=== PATIENT | female | born 1935 | race Caucasian/White ===

== ENCOUNTER → 2018-06-19 12:22 | Outpatient (CLI) | payer MEDICARE, OTHER, SELFPAY ==
--- NOTE | 2018-06-19 | DI.MRI.S_ITS ---
PROCEDURE: MR KNEE LT WO CON INDICATIONS: CHRONIC PAIN OF LEFT KNEE TECHNIQUE: Noncontrast sagittal PD fast spin echo and T2 fast spin echo with fat saturation, sagittal 3-D FLASH with fat saturation; coronal T1 spin echo and PD fast spin echo with fat saturation, and axial PD fast spin echo with fat saturation through the knee. COMPARISON: [facility], MR, KNEE/ANKLE W/O CONTRAST(LT), 12/18/2007, 10:59. [facility], CR, XR KNEE ARTHRITIC SERIES BI, 06/10/2018, 15:42. FINDINGS: Image quality: Excellent. Menisci: There is medial extrusion of the medial meniscus, which demonstrates amorphous high signal intensity within the anterior horn, body, and posterior horn, which demonstrates superior and inferior articular surface extension, indicating multifocal degenerative tearing. The lateral meniscus demonstrates linear oblique high T2 signal intensity traversing the body and posterior horn, demonstrating inferior articular surface extension, indicating oblique tearing. Cruciate ligaments: The posterior cruciate ligament is intact. There is severe thinning of the anterior cruciate ligament at the tibial insertion site. Medial structures: The medial collateral ligament appears intact. Visualized portions of the pes anserinus tendons appear normal. No abnormal bursal fluid. Lateral structures: The lateral collateral ligament demonstrates a small focus of fluid signal intensity close to the femoral insertion site. The long and short heads of the biceps femoris tendon appear intact. The popliteus tendon appears normal. Iliotibial band appears normal. Anterior structures: The quadriceps and patellar tendons appear intact. There is mild lateral patellar subluxation. No femoral trochlear dysplasia or ventral trochlear prominence. No edema in the infrapatellar fat pad. Bones and cartilage: No bone marrow contusions or fractures. There is severe tricompartmental periarticular osteophyte formation. There is severe diffuse articular cartilage loss overlying the weightbearing aspects of the medial femoral condyle and medial tibial plateau. Mild diffuse articular cartilage loss overlies the weightbearing aspects of the lateral femoral condyle and lateral tibial plateau. Moderate articular cartilage loss overlies the patellar apex and lateral patellar facet inferiorly Joint space: There is a small knee joint effusion and a small Scott's cyst. Normal appearing synovial plicae are incidentally noted. IMPRESSION: 1. 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 2. Progressive medial and lateral meniscal tearing. 3. Partial-thickness lateral collateral ligament tear. 4. Knee joint effusion and Scott's cyst. 5. Partial-thickness anterior cruciate ligament tear. Dictated by: Kwasi Montalvo M.D. on 06/19/2018 at 16:10 Approved by: Kwasi Montalvo M.D. on 06/19/2018 at 16:14
== END ==
PROVIDERS: PCP Nurse Practitioner; Visit Provider Orthopaedic Surgery
DX: S83.422A Sprain of lateral collateral ligament of left knee, initial encounter (principal); S83.512A Sprain of anterior cruciate ligament of left knee, initial encounter; M17.12 Unilateral primary osteoarthritis, left knee; M25.562 Pain in left knee; M23.322 Other meniscus derangements, posterior horn of medial meniscus, left knee; M23.212 Derangement of anterior horn of medial meniscus due to old tear or injury, left knee; M23.352 Other meniscus derangements, posterior horn of lateral meniscus, left knee; M71.22 Synovial cyst of popliteal space [Baker], left knee; M25.462 Effusion, left knee; G89.29 Other chronic pain
CPT/HCPCS: 73721

== ENCOUNTER 2018-08-30 09:44 | Day surgery (SDC) | payer MEDICARE, OTHER, SELFPAY ==
[2018-08-28 08:55] VITALS: BMI 33.1
[2018-08-30] VITALS (20 sets, daily range): BP systolic 115–156; BP diastolic 59–79; PULSE 63–96; RESP 8–18; TEMP 35.7–37; O2SAT 91–99; BMI 33.1
--- NOTE | 2018-08-30 06:00 | DI.RAD.S_ITS ---
PROCEDURE: XR KNEE LT 1TO2V INDICATIONS: prosthesis placement TECHNIQUE: 2 view(s) of the knee acquired. COMPARISON: [facility], XR KNEE ARTHRITIC SERIES BI, 06/10/2018, 15:42. FINDINGS: Bones: Patient is status post knee joint arthroplasty. Hardware components are in expected positions. Visualized bony structures are intact. Soft tissues: Overlying postoperative changes are noted. IMPRESSION: Expected postsurgical change for left knee arthroplasty. Dictated by: Emilie Miranda MD, PhD on 08/30/2018 at 14:55 Approved by: Emilie Miranda MD, PhD on 08/30/2018 at 14:56
[2018-08-30] MEDS: LACTATED RINGERS 1,000 ML 42 ML IV ×2 (11:02→13:52)
[2018-08-30] MEDS: VANCOMYCIN 1,000 MG/200 ML FROZ.PIGGY 200 MG IV (11:03)
[2018-08-30] MEDS: ACETAMINOPHEN 325 MG TABLET 975 MG PO ×3 (11:06→20:52)
[2018-08-30] MEDS: PREGABALIN 75 MG CAPSULE PO (11:06)
[2018-08-30] MEDS: CELECOXIB 200 MG CAPSULE PO (11:06)
[2018-08-30] MEDS: CEFAZOLIN 2 GM/100 ML FROZ.PIGGY IV ×2 (11:54→19:35)
--- NOTE | 2018-08-30 12:41 | SUR.OPER ---
Supine on padded OR bed. Pillow under head, arms secured on padded armboards <90 degree abduction. Safety belt across torso. Non-operative leg secured with tape over blanket over lower leg. Operative leg secured in DeMayo/Frederick positioner. Foam padded brace at thigh of operative leg.
[2018-08-30] MEDS: BUPIVACAINE 0.25% W/ EPI VIAL 50 ML INJ (12:50)
[2018-08-30] MEDS: BUPIVACAINE LIPOSOME 266 MG/20 ML VIAL INJ (12:50)
[2018-08-30] MEDS: fentaNYL 100 MCG/2 ML INJ 50 MCG IV ×2 (15:01→15:16)
--- NOTE | 2018-08-30 15:03 | PM.OP.1 ---
Operative Date/Time/Diagnoses Date of procedure: 08/30/18 Time of procedure: 15:03 Pre-op diagnosis: left knee OA Post-op diagnosis: same Procedure & Clinicians Procedure: left total knee arthroplasty Same procedure as scheduled: Yes Indications: The patient has had progressively worsening left knee pain with radiographic changes consistent with arthritis. Non-operative management has failed and the patient has requested total knee replacement. The risks, benefits and alternatives to surgery were discussed with the patient prior to proceeding. Risks discussed included, but were not limited to, failure to relieve pain, stiffness, infection, nerve damage, deep venous thrombosis, pulmonary embolism, stroke, coma, heart attack, permanent paralysis and , as well as the potential need for eventual revision of the prosthetic. Surgeon: Kaye White Shell Press Operator: Sheila Hill Anesthesia Type: General and Spinal Operative Notes Findings: Severe left knee osteoarthritis, good stability, full range of motion Closure Type: primary Specimen(s): none sent Implants & Drains: white and nephalbin Maki BCS2 femur 4, tibia 3, +9, 32 x 7.5 Applied: drain(s) Estimated Blood Loss (mL): 250 Blood products transfused: none Tourniquet time (min): 75 Procedure in detail: The patient was seen in the pre-operative area, where the patient identified the left knee as the operative site and this was marked with my initials. The patient received pre-operative antibiotics, and was taken to the operating room and placed on the operative table in the supine position. After satisfactory anesthesia, a second time worker out was performed. The left leg was encircled with a tourniquet about the proximal thigh, and the leg was prepared from the toes to the tourniquet with ChloroPrep in the usual fashion and draped through sterile drapes. The leg was elevated and exsanguinated with Eschmark bandage and the tourniquet inflated to [250] mmHg pressure. The knee was approached through an approximately 18 cm incision centered over the patella and carried into the knee through a medial parapatellar arthrotomy. A portion of the medial and lateral meniscus was resected. Soft tissue was carefully mobilized around the patella the patella was measured with a caliper. Bone was resected from the patella and the patellar height was reconstituted with up an appropriate sized patellar component. A cover was then placed on the patella. A small amount of additional medial and lateral meniscus was resected. The visionare guide fit adequately to the distal femur. It looked like an appropriate distal femoral cut and the cut was made without difficulty. The rotation was assessed and the appropriate size femoral guide was placed on the distal femur and finishing cuts were made. There was no evidence of notching. The anterior, posterior and chamfer cuts were then made. The posterior osteophytes and soft tissues were then removed. The posterior capsule was injected with part of a mixture of 60 ml 0.25% Marcaine mixed with 20 ml Exparel for post operative pain control. The remainder of this mixture was injected into the capsule and subcutaneous tissues during cement curing. The tibia was prepared and the visionaire guide fit well to the distal tibia. The rotation was assessed. The patient was placed in extension residual medial and lateral meniscus as well as any residual bone was carefully resected. [No] additional tibia was resected. Hemostasis was achieved especially posteriorly. Additional local was injected into the posterior capsule. The extension gap was assessed and additional releases for gap balancing were performed as necessary. It was checked with the gap mushroom cutter. The femoral component was trial was placed and the notch was finished. Trial tibial and femoral components were then placed and the knee placed through a range of motion. Range of motion was [0-130], with good stability throughout the range. The trials were then removed, and the tibia was finished. The bone was prepared with pulsatile lavage, and dried with a sponge. Cement was applied and the final prosthetics placed. Excess cement was removed during and after cement curing. A brief Betadine soak was performed. After confirming there was no extruded cement posteriorly, the final tibial insert was placed. The knee was copiously irrigated and the tourniquet deflated. Hemostasis was obtained with the [Bovie]. A drain was placed and brought out superolaterally. The capsule was closed with interrupted polyethylene suture. The subcutaneous layer was closed with barbed sutures, and the skin with a running 3-0 V-Lock suture and Surgical glue. An Aquacel Ag dressing was applied and the patient was taken to recovery having tolerated the procedure well. Complications: none Condition: stable Disposition: Acute Care Plan for aftercare: The patient will be maintained on a standard total knee replacement protocol with weight bearing as tolerated. The patient will receive aspirin and sequential compression devices for DVT prophylaxis. The patient will be discharged home when safe for the home environment.
--- NOTE | 2018-08-30 15:21 | SUR.PHASEI ---
About ready to transfer to Acute Care and noted new onset of pain. With two doses of Fentanyl need to use O2 via NC so transfer delayed. Allowing time to assess O2 needs. No further med will be given in PACU as VS show onset with decreasing BP, and increased somnolent state seen with mild resp compromise.
--- NOTE | 2018-08-30 15:37 | SUR.PHASEI ---
RA trial prior to transfer with <92% sats realized. Will transfer to AC on O2. Am waiting now on RN finish shift report and receive PACU report.
[2018-08-30] MEDS: OXYCODONE IR 5 MG TABLET PO (16:20)
[2018-08-30] MEDS: LACTATED RINGERS 1,000 ML 125 ML IV (19:36)
[2018-08-30] MEDS: ASPIRIN EC 81 MG TABLET PO (20:54)
[2018-08-30] MEDS: DOCUSATE 100 MG CAPSULE PO (20:54)
[2018-08-31] VITALS: O2SAT 95
[2018-08-31] MEDS: LACTATED RINGERS 1,000 ML 125 ML IV (00:34)
[2018-08-31] MEDS: OXYCODONE IR 5 MG TABLET PO ×3 (00:48→14:52)
[2018-08-31 00:56] VITALS: BP 124/72; PULSE 60; RESP 16; TEMP 36.4; O2SAT 95
[2018-08-31] MEDS: CEFAZOLIN 2 GM/100 ML FROZ.PIGGY IV (03:33)
[2018-08-31 05:15] VITALS: BP 138/64; PULSE 57; RESP 16; TEMP 36.3; O2SAT 96
[2018-08-31 05:35] LABS: Hematocrit 31.2 % (36-46); Hemoglobin 10.4 g/dL (12.0-16.0)
[2018-08-31 08:00] VITALS: BP 133/73; PULSE 75; RESP 16; TEMP 36.5; O2SAT 97
--- NOTE | 2018-08-31 09:30 | PT.IIE ---
Current Diagnoses Unilateral primary osteoarthritis, left knee (08/30/18) Surgery Performed Operation Date: 08/30/18 12:00 Actual Procedures p Total Knee Arthroplasty(Left) - Kaye Quijano MD Surgical History (Last Updated 08/28/18 @ 09:14 by Stella Freed, RN) History of bilateral hip arthroplasty (Acute) History of colon resection (Acute ~2017) Hx of bilateral oophorectomy (Acute) Hx of cholecystectomy (Acute) Medical History (Last Updated 08/28/18 @ 09:14 by Stella Freed RN) Bilateral breast cancer (Acute) Easy bruisability (Acute) Edema (Acute) HTN (hypertension) (Acute) Hearing impaired (Acute) Skin cancer (Acute) Physical Therapy Inpatient Evaluation/Re-Eval M1 PT/OT-IP Prior Functional Status Start: 08/31/18 09:29 Freq: NEEDED Status: Active Protocol: Document 08/31/18 09:30 [facility] (Rec: 08/31/18 09:41 [facility] [id number]) Medical Review Prior Functional Status Medical History Reviewed Yes Mobility and Gait indep. gait without device until ~2 wks ago, she started using a SPC for gait d/t L knee pain Activities of Daily Living and IADL's indep. ADLs Social History Household Members spouse Living Arrangements Apartment/Condo Number of Floors (Floors) One Floor Number of Stairs To Enter/Railing? 8 SE with wide steps that will fit a FWW onto each step; 1 step into BR and 1 step up to toilet Home Environment Standard Height Toilet Tub/Shower Home Equipment Front Wheel Walker Straight Cane Bedside Commode Tub Transfer Bench Additional Social History Comment just had cataract re- do surgery, unable to drive but can assist upon d/c. Step son and daughter live in same home, above the lower level the pt lives in with her spouse. M2 PT-IP Current Condition Start: 08/31/18 09:29 Freq: NEEDED Status: Active Protocol: Document 08/31/18 09:30 [facility] (Rec: 08/31/18 09:41 [facility] [id number]) Physical Therapy Current Condition Current Condition Evaluation Date 08/31/18 Treatment Diagnosis L TKA 08/30/18, impaired gait and activity tolerance Weight Bearing Status Weight Bearing Status Weight Bear as Tolerated M3 PT-IP Subjective Start: 08/31/18 09:29 Freq: NEEDED Status: Active Protocol: Document 08/31/18 09:30 [facility] (Rec: 08/31/18 09:41 [facility] [id number]) Subjective Physical Therapy Visit Type Type Initial Evaluation Visit Start Time 08:56 Visit Stop Time 09:30 Total Visit Minutes 34 Number of MANGLE CATCHER Visits 0 Physical Therapy Visit Comments Patient Comments pt states she is doing okay Patient Goals to go home Therapy Pain Assessment Pain When Pain Assessed At Rest Pain Present Pain Present Pain Reported Location Left Knee Intensity 4 Scale Used Numeric (1 - 10) M4 PT-IP Mobility and Gait Start: 08/31/18 09:29 Freq: NEEDED Status: Active Protocol: Document 08/31/18 09:30 [facility] (Rec: 08/31/18 09:41 [facility] [id number]) PT-Bed Mobility Assessment Supine to Sit Supine to Sit Standby Assistance Sit to Supine Sit to Supine Standby Assistance Scooting Scooting to Edge of Bed Independent PT-Transfer Assessment Sit to and From Stand Sit to and from Stand Standby Assistance Use of Upper Extremities Equipment Transfer Assistive Device Gait Belt Front Wheeled Walker Transfers Transfer Destination Bed Chair Transfer Technique Stand Step Pivot Transfer Ability Level of Assist Standby Assistance Gait Assessment Gait Gait Assistance Required: Standby Assistance Distance (Feet) 70 Assistive Devices Assistive Device Gait Belt Front Wheeled Walker Gait Deviations General Gait Pattern Antalgic Decreased Stride Length Step-to Gait Factors Limiting Gait Function Factors Limiting Gait Function Decreased Activity Tolerance Decreased Strength Limited Range of Motion Pain Comments Gait Comments decreased L knee flexion with gait, foot flat on IC Stair Climbing Assessment Comments Stair Climbing Comments to be assessed PT-Balance Assessment Sitting Balance and Reactions Static Sitting Balance Ability Good Dynamic Sitting Balance Ability Good Standing Balance and Reactions Static Standing Balance Ability Good Dynamic Standing Balance Ability Fair Device Used FWW M5 PT-IP Objective Assessments Start: 08/31/18 09:29 Freq: NEEDED Status: Active Protocol: Document 08/31/18 09:30 [facility] (Rec: 08/31/18 09:41 [facility] [id number]) Orientation Orientation/Cognition Level of Alertness Alert Orientation Name Age Birthday Month Date Year Day of Week Place Situation Gross Range of Motion Lower Extremity ROM Assessment Left Impaired Impairments L knee AROM 2-82 degrees Strength Lower Extremity Strength Assessment Left Impaired Comments Strength Comments no formal MMT due to surgery yesterday. UE assistance with SLR to get in/out of bed on the LLE; able to perform L knee extension vs gravity in sitting (at least 3/5) Coordination Assessment Gross Coordination Gross Coordination WNL Sensation Assessment Sensation Gross Sensation WNL M6 PT-IP Treatment Start: 08/31/18 09:29 Freq: NEEDED Status: Active Protocol: Document 08/31/18 09:30 [facility] (Rec: 08/31/18 09:41 [facility] [id number]) Physical Therapy Treatment Exercises Exercises Ankle Pumps Quad Sets Seated Knee Flexion/Extension Knee ROM Measurement L knee AROM 2-82 degrees Education Education Provided Post-Op Packet Safety M7 PT-IP Assessment and Plan Start: 08/31/18 09:29 Freq: NEEDED Status: Active Protocol: Document 08/31/18 09:30 [facility] (Rec: 08/31/18 09:41 [facility] [id number]) PT Summary Assessment and Plan Potential Rehabilitation Potential Excellent Status of Condition at Evaluation Stable Summary Impairments Pain ROM Strength Gait Activity Tolerance Assessment Summary POD #1 L TKA. Pt able to ambulate 70 ft with SBA and the use of a FWW with a step- to gait pattern. Pt has 8 steps to enter/exit her home, and will need to perform these prior to d/c. At this time, expect pt to be able to d/c home when medically stable. and family to support pt upon d/c. She has OP PT set up for next week. Pain increased to 6/10 after ambulation, applied cold pack to L knee. PA-C in to see pt after session. Goals Bed Mobility Goal Independent Transfer Goal Independent Gait Goal Standby Assistance Front Wheel Walker Gait Distance 150 Other Goals up/down 8 steps with FWW and CGA Days to Meet Goals 3 Frequency of Treatment Frequency Of Treatment Twice a Day Treatment Plan Physical Therapy Treatment Plan Bed Mobility Training Transfer Training Gait Training Therapeutic Exercise Balance Retraining Discharge Planning Hot or Cold Pack Neuromuscular Re-ed Other Recommendations and Next Treatment stair training (8 SE but can Focus use FWW up/down steps), progress gait and ROM Recommendations To Nursing Amount of Assist Needed 1 Person Assist Discharge Recommendations PT Discharge Recommendations Home with Assistance Outpatient PT
[2018-08-31 10:05] VITALS: O2SAT 94
[2018-08-31] MEDS: ASPIRIN EC 81 MG TABLET PO (10:24)
[2018-08-31] MEDS: DOCUSATE 100 MG CAPSULE PO (10:24)
[2018-08-31] MEDS: ACETAMINOPHEN 325 MG TABLET 975 MG PO (10:25)
[2018-08-31] MEDS: SODIUM CHLORIDE 0.9% FLUSH 10 ML IV (10:28)
[2018-08-31] MEDS: LOSARTAN 50 MG TABLET 100 MG PO (10:28)
[2018-08-31] MEDS: hydroCHLOROthiazide 25 MG TABLET PO (10:28)
--- NOTE | 2018-08-31 11:04 | PM.PNPO.1 ---
Subjective Date Patient Seen: 08/31/18 Time Patient Seen: 11:05 Interval history: Hospital day 2, postop day 1 following left total knee arthroplasty by Dr. Quijano. Patient states she is doing well today. Did ambulate with physical therapy in the hallway without difficulty. Anticipating going home today. Pain controlled well with oxycodone. She has this with path patient and has postop pain medications at home. Exam Vital Signs (past 8 hours): - 08/31/18 05:15 08/31/18 08:00 08/31/18 10:05 Temperature 97.4 F L 97.7 F Pulse Rate 57 L 75 Respiratory Rate 16 16 Blood Pressure 138/64 133/73 Pulse Oximetry 96 97 94 Fraction of Inspired Oxygen 21 Oxygen Delivery Method Room Air Oxygen Flow Rate 0 Objective Labs Result Diagrams: 08/31/18 05:00 Labs: Laboratory Results - last 24 hr 08/31/18 05:00 Hgb 10.4 L Hct 31.2 L Assessment & Plan Post-op Postoperative Procedures Operation Date: 08/30/18 12:00 Actual Procedures Side Surgeon p Total Knee Arthroplasty Left Kaye Quijano MD
--- NOTE | 2018-08-31 11:11 | PM.DS.1 ---
History of Present Illness Date Patient Seen: 08/31/18 Time Patient Seen: 11:11 Chief complaint: 42334 LEFT TOTAL KNEE ARTHROPLASTY Narrative: Hospital day 2, postop day 1 following left total knee arthroplasty by Dr. Quijano. Patient states he is doing well. Pain control with oxycodone. She has progressed well with physical therapy with ambulation. She would like to go home today. Discharge Providers Date of admission: 08/30/18 09:44 Primary care physician: GISELLE Luna Consults: 08/30/18 06:00 Consult to Anesthesiology Routine Comment: Consulting Provider: Anesthesiologist Reason for consultation: Regional block for post operative pain control 08/30/18 16:02 Consult to Discharge Planning Routine Comment: Consult to Physical Therapy Evaluate & Treat Comment: Physician Instructions: postop TKA protocol Consult to Respiratory Therapy Evaluate & Treat Comment: Physician Instructions: Evaluate and treat Discharge provider: Ji Meza PA-C Discharge Date: 08/31/18 Summary Discharge Diagnosis: Status post left total knee arthroplasty. Hospital Course: Patient brought to hospital on 08/30/2018 for above noted surgery. She remained stable postoperatively. Progressed well with physical therapy. Ready for discharge home on postop day 1. Status at Discharge Cognitive/behavioral status at discharge: Alert, oriented no acute distress sitting in chair. Functional status at discharge: uses cane/walker Overall status at discharge: patient is progressing back to baseline Time Spent with Patient Less than 30 minutes Exam Vital Signs (past 8 hours): - 08/31/18 05:15 08/31/18 08:00 08/31/18 10:05 Temperature 97.4 F L 97.7 F Pulse Rate 57 L 75 Respiratory Rate 16 16 Blood Pressure 138/64 133/73 Pulse Oximetry 96 97 94 Fraction of Inspired Oxygen 21 Oxygen Delivery Method Room Air Oxygen Flow Rate 0 Narrative Exam Narrative: Legs. Frank wrap an Aquacel dressing to left knee is dry without drainage or inflammation. Hemovac in place with decreased drainage. No calf pain or swelling. Pulses symmetrical. Objective Labs Result Diagrams: 08/31/18 05:00 Labs: Laboratory Results - last 24 hr 08/31/18 05:00 Hgb 10.4 L Hct 31.2 L Discharge Plan Discharge Plan Patient Disposition: Home Discharge comment: Discharge home after Hemovac DC and cleared by PT. Discharge Med Rec/Prescriptions Prescriptions: Continue acetaminophen [Tylenol Extra Strength] 500 mg Tablet 500 mg PO TID PRN (Reason: pain) RF: 0 losartan-hydrochlorothiazide 100-25 mg Tablet 1 tab PO DAILY RF: 0 ibuprofen 200 mg Tablet 1 - 2 mg PO TID PRN (Reason: pain) RF: 0 Provider Discharge Instructions Diet: Diet as Tolerated Activity: Ambulate as tolerated. Continue with range of motion of left knee as tolerated. Cold/Heat Therapy: Cold pack to left knee as needed. Other treatments: Patient has prescriptions at home for oxycodone, Mobic, Vistaril to use for postop pain. Skin/Wound/Dressing Care Report to your healthcare provider any signs of infection, such as:: chills, fever, night sweats, increased pain, unusual drainage and unusual redness Dressing: Keep Aquacel dressing in place until postop visit. Visit Report/Discharge Packet Instructions: DI for Knee Replacement Discharge Data Primary Care Provider: Virginia Cordero Attending Provider: Kaye Quijano Admit Date/Time: 08/30/18 09:44
--- NOTE | 2018-08-31 13:20 | PT.IPTN ---
Current Diagnoses Unilateral primary osteoarthritis, left knee (08/30/18) Surgery Performed Operation Date: 08/30/18 12:00 Actual Procedures p Total Knee Arthroplasty(Left) - Kaye Quijano MD Physical Therapy Treatment Note M2 PT-IP Current Condition Start: 08/31/18 09:29 Freq: NEEDED Status: Active Protocol: Document 08/31/18 09:30 [facility] (Rec: 08/31/18 09:41 [facility] [id number]) Physical Therapy Current Condition Current Condition Evaluation Date 08/31/18 Treatment Diagnosis L TKA 08/30/18, impaired gait and activity tolerance Weight Bearing Status Weight Bearing Status Weight Bear as Tolerated M3 PT-IP Subjective Start: 08/31/18 09:29 Freq: NEEDED Status: Active Protocol: Document 08/31/18 13:20 RCC (Rec: 08/31/18 13:40 RCC [email or web address]) Subjective Physical Therapy Visit Type Type Treatment Note Visit Start Time 12:56 Visit Stop Time 13:20 Total Visit Minutes 24 Number of [employer] Visits 0 Physical Therapy Visit Comments Patient Comments pt willing to participate in therapy. Therapy Pain Assessment Pain When Pain Assessed During Mobility Pain Present Pain Present Pain Reported Location Left Knee Intensity 4 Scale Used Numeric (1 - 10) M4 PT-IP Mobility and Gait Start: 08/31/18 09:29 Freq: NEEDED Status: Active Protocol: Document 08/31/18 13:20 RCC (Rec: 08/31/18 13:40 RCC [email or web address]) PT-Transfer Assessment Sit to and From Stand Sit to and from Stand Independent Equipment Transfer Assistive Device Gait Belt Front Wheeled Walker Transfers Transfer Destination Chair Transfer Technique Stand Step Pivot Transfer Ability Level of Assist Independent Gait Assessment Gait Gait Assistance Required: Independent Distance (Feet) 100 Assistive Devices Assistive Device Gait Belt Front Wheeled Walker Gait Deviations General Gait Pattern Antalgic Decreased Stride Length Decreased Feet Clearance Step-to Gait Factors Limiting Gait Function Factors Limiting Gait Function Decreased Activity Tolerance Decreased Strength Limited Range of Motion Pain Comments Gait Comments decreased knee flexion on the L throughout gait Stair Climbing Assessment Evaluation Level of Assist On Stairs Standby Assistance Devices Stair Climbing Assistive Devices Front Wheel Walker Technique/Endurance Stair Climbing Direction Ascend and Descend Stair Climbing Technique Step to Step Number of Steps Climbed 4 Query Text: Stair Climbing Set # Repetitions (reps) 2 Comments Stair Climbing Comments using FWW step up/down on 8 step M5 PT-IP Objective Assessments Start: 08/31/18 09:29 Freq: NEEDED Status: Active Protocol: Document 08/31/18 09:30 [facility] (Rec: 08/31/18 09:41 [facility] [id number]) Orientation Orientation/Cognition Level of Alertness Alert Orientation Name Age Birthday Month Date Year Day of Week Place Situation Gross Range of Motion Lower Extremity ROM Assessment Left Impaired Impairments L knee AROM 2-82 degrees Strength Lower Extremity Strength Assessment Left Impaired Comments Strength Comments no formal MMT due to surgery yesterday. UE assistance with SLR to get in/out of bed on the LLE; able to perform L knee extension vs gravity in sitting (at least 3/5) Coordination Assessment Gross Coordination Gross Coordination WNL Sensation Assessment Sensation Gross Sensation WNL M6 PT-IP Treatment Start: 08/31/18 09:29 Freq: NEEDED Status: Active Protocol: Document 08/31/18 13:20 RCC (Rec: 08/31/18 13:40 RCC [email or web address]) Physical Therapy Treatment Exercises Exercises Seated Knee Flexion/Extension Knee ROM Measurement L AROM 2-92 deg M7 PT-IP Assessment and Plan Start: 08/31/18 09:29 Freq: NEEDED Status: Active Protocol: Document 08/31/18 13:20 RCC (Rec: 08/31/18 13:40 [facility] [id number]) PT Summary Assessment and Plan Summary Progress Towards Goals Safe For Discharge Assessment Summary POD #1 L TKA. Pt able to manage step up and down on 8 step using a FWW and SBA and ambulate 100ft using step-to gait pattern most likely due to pain. Discussed and attempted to advance knee flexion and step length, but pt still limited at this time. Pt is cleared to d/c home with assistance when medically stable. Goals Bed Mobility Goal Independent Transfer Goal Independent Gait Goal Standby Assistance Front Wheel Walker Gait Distance 150 Other Goals up/down 8 steps with FWW and CGA Days to Meet Goals 3 Frequency of Treatment Frequency Of Treatment Twice a Day Treatment Plan Other Recommendations and Next Treatment advance ROM and gait as Focus tolerated. Recommendations To Nursing Amount of Assist Needed 1 Person Assist Discharge Recommendations PT Discharge Recommendations Home with Assistance Outpatient PT
--- NOTE | 2018-08-31 13:23 | PC.NURSE ---
Addendum entered by Izzy Lim R.N. 08/31/18 14:31: Pt has completed kwan path training and has rx's at home. Original Note: Am shift Pt up with PT for mobility and stairs. PA into see Pt agreeable with D/c if PT this afternoon (stairs) goes well. Hemovac compressed and draining serosang. Oxycodone for pain.
== END 2018-08-31 14:57 | disposition home or self-care (01) ==
LOC: AC 08-31 12:11 → OR 09-01 00:05 → AC 09-01 00:07
PROVIDERS: PCP Nurse Practitioner; Visit Provider Orthopaedic Surgery
PROC: 0SRD0JZ Replacement of Left Knee Joint with Synthetic Substitute, Open Approach (ICD-10-PCS; CPT 27447; principal; 2018-08-30 12:00)
DX: M17.12 Unilateral primary osteoarthritis, left knee (principal); Z87.891 Personal history of nicotine dependence
CPT/HCPCS: 27447; 36415; 73560; 85014; 85018; 94760; 97110; 97116; 97161; C1776; C9290; J0690; J1100; J2250; J2405; J2704; J3010; J3370